=== PATIENT | female | born 1945 | race Caucasian/White ===

== ENCOUNTER → 2016-07-20 | Outpatient (CLI) | payer OTHER | LOC: EXRD 14:26 | DX: M81.8 Other osteoporosis without current pathological fracture (principal); M81.0 Age-related osteoporosis without current pathological fracture | CPT/HCPCS: 77080 ==

== ENCOUNTER 2020-05-06 01:11 | Emergency (ER) | payer OTHER ==
[~2020-05-06 01:11] MED LIST: AMARYL 2MG TABLE2 MG PO; CRESTOR5 MG PO; DOXYCYCLINE HY100 MG PO; ENOXAPARIN100 MG/1 M SQ; KEFLEX CAP 500500 MG PO; LANTUS SOL100 UNIT/1 SQ; LEVOTHYROXINE112 MCG PO; LOPRESSOR 25 MG25 MG PO; MYCOSTATIN100000 UTS PO; PYRIDIUM100 MG PO; ROBITUSSIN AC480 ML PO; WARFARIN SODIUM10 MG PO; WARFARIN SODIUM5 MG PO; ZITHROMAX250 MG PO
[2020-05-06] MEDS ORDERED: CYCLOBENZAPRINE5 MG PO (03:21)
== END 2020-05-06 03:50 | disposition home or self-care (01) ==
LOC: ER1 01:11
DX: M54.42 Lumbago with sciatica, left side (principal); E11.9 Type 2 diabetes mellitus without complications; Z98.890 Other specified postprocedural states
CPT/HCPCS: 72131; 73502; 96372; 99284; J1100

== ENCOUNTER 2020-11-13 16:04 | Emergency (ER) | payer OTHER ==
[~2020-11-13 16:04] MED LIST changes: +CYCLOBENZAPRINE5 MG PO
[2020-11-13 17:48] LABS: HEMOGLOBIN 13.5 gm/dl (12.3-15.3); RED BLOOD COUNT 4.16 M/UL (4.00-5.10); WHITE BLOOD COUNT 3.8 K/UL (4.5-11.0)
[2020-11-13 18:30] LABS: BUN/CREATININE RATIO 15 (0-10)
== END 2020-11-13 20:24 | disposition home or self-care (01) ==
LOC: ER1 16:04
PROVIDERS: Emergency Medicine
DX: R07.9 Chest pain, unspecified (principal); I10 Essential (primary) hypertension; Z86.711 Personal history of pulmonary embolism; J44.9 Chronic obstructive pulmonary disease, unspecified; E11.40 Type 2 diabetes mellitus with diabetic neuropathy, unspecified; E11.51 Type 2 diabetes mellitus with diabetic peripheral angiopathy without gangrene; Z90.49 Acquired absence of other specified parts of digestive tract
CPT/HCPCS: 71045; 80053; 82550; 82553; 83874; 84484; 85025; 85379; 85610; 85730; 93005; 96374; 96376; 99285; J0360

== ENCOUNTER → 2021-01-30 | Outpatient (CLI) | payer OTHER | LOC: RAD 13:01 | DX: R07.81 Pleurodynia (principal); M47.819 Spondylosis without myelopathy or radiculopathy, site unspecified | CPT/HCPCS: 71111 ==

== ENCOUNTER 2021-04-18 08:46 | Emergency (ER) | payer OTHER | END 2021-04-18 13:15 | disposition home or self-care (01) | LOC: ER1 08:46 | DX: M54.50 Low back pain, unspecified (principal); I10 Essential (primary) hypertension; J44.9 Chronic obstructive pulmonary disease, unspecified; W19.XXXA Unspecified fall, initial encounter | CPT/HCPCS: 72131; 72170; 72192; 96372; 99283; J1885 ==